=== PATIENT | male | born 1970 | race Asian ===

== ENCOUNTER 2019-09-14 17:37 | Emergency (ER) | payer OTHER ==
[~2019-09-14] VITALS: Ht 170.2 cm; Wt 79.4 kg
[2019-09-14 17:40] VITALS: Ht 170.2 cm; Wt 79.4 kg
[2019-09-14 20:39] VITALS: BP 126/86
== END 2019-09-14 20:39 | disposition home or self-care (01) ==
LOC: ED 17:37
DX: S39.012A Strain of muscle, fascia and tendon of lower back, initial encounter (principal); I10 Essential (primary) hypertension; E78.00 Pure hypercholesterolemia, unspecified; W11.XXXA Fall on and from ladder, initial encounter; Y93.89 Activity, other specified; Y92.89 Other specified places as the place of occurrence of the external cause; Y99.8 Other external cause status
CPT/HCPCS: J1885